=== PATIENT | male | born 1980 | race Caucasian/White ===

== ENCOUNTER 2016-03-21 11:47 | Emergency (ER) | payer OTHER ==
[~2016-03-21] VITALS: Ht 175.3 cm; Wt 73.6 kg
[2016-03-21] MEDS ORDERED: NORCO 5/3251 TABLET PO (14:39)
[2016-03-21] MEDS ORDERED: MOTRIN800 MG PO (14:39)
[2016-03-21 14:59] VITALS: BP 137/90
== END 2016-03-21 15:00 | disposition home or self-care (01) ==
LOC: RME 11:47 → EME 11:47 → RME 15:00
PROC: 2W3DX1Z Immobilization of Left Lower Arm using Splint (ICD-10-PCS; principal; 2016-03-21)
DX: S63.502A Unspecified sprain of left wrist, initial encounter (principal); W01.198A Fall on same level from slipping, tripping and stumbling with subsequent striking against other object, initial encounter; Y93.51 Activity, roller skating (inline) and skateboarding; Z87.891 Personal history of nicotine dependence
CPT/HCPCS: 73110; 99281; 99283

== ENCOUNTER 2016-10-02 10:57 | Emergency (ER) | payer OTHER ==
[~2016-10-02] VITALS: Ht 175.3 cm; Wt 70.9 kg
[~2016-10-02 10:57] MED LIST: MOTRIN800 MG PO; NORCO 5/3251 TABLET PO
[2016-10-02] MEDS ORDERED: FLEXERIL10 MG PO (13:36)
[2016-10-02 15:21] VITALS: BP 125/72
== END 2016-10-02 15:22 | disposition home or self-care (01) ==
LOC: EME 10:57
DX: M54.42 Lumbago with sciatica, left side (principal); M51.36 Other intervertebral disc degeneration, lumbar region
CPT/HCPCS: 72100; 99281; 99284; J1885